=== PATIENT | female | born 1950 | race Hispanic/Latino ===

== ENCOUNTER 2020-04-17 22:05 | Inpatient (IN) | payer BC, MEDICARE ==
[~2020-04-17] VITALS: Ht 154.9 cm; Wt 61.2 kg
[2020-04-17 23:11] LABS: BASOPHILS % (AUTO) 0.5 % (0.0-5.0); EOSINOPHILS % (AUTO) 0.2 % (0.0-8.0); HEMATOCRIT 35.8 % (36-48); LYMPHOCYTES % (AUTO) 29.7 % (21.0-51.0); MEAN CORPUSCULAR HEMOGLOBIN 30.7 pg (27.0-33.0); MEAN CORPUSCULAR HGB CONC 34.4 g/dL (32.0-36.0); MEAN CORPUSCULAR VOLUME 89.3 fL (79-99); MONOCYTES % (AUTO) 10.3 % (3.0-13.0); NEUTROPHILS % (AUTO) 59.1 % (40.0-77.0); PLATELET COUNT (AUTO) 169 K/uL (130-400); RED BLOOD CELL COUNT(AUTO) 4.01 MIL/uL (4.00-5.50); WHITE BLOOD COUNT (AUTO) 4.4 K/uL (4.8-10.8)
[2020-04-17 23:26] LABS: CREATININE 0.7 mg/dL (0.5-1.5); INR 0.96 (0.85-1.15); PARTIAL THROMBOPLASTIN TIME 25.2 SEC (26.3-35.5); POTASSIUM 3.4 mmol/L (3.5-5.1); PROTHROMBIN TIME 10.4 SEC (9.6-11.6)
[2020-04-17 23:28] LABS: ALBUMIN 4.1 g/dL (3.5-5.0); BILIRUBIN,TOTAL 0.3 mg/dL (0.2-1.0); TOTAL PROTEIN, SERUM 7.8 g/dL (6.0-8.3)
[2020-04-17 23:32] LABS: B-TYPE NATRIURETIC PEPTIDE 12 pg/mL (0-100)
[2020-04-18] MEDS ORDERED: ONDANSETRON HCL 4 MG/2 ML VIAL IV PRN (00:30)
[2020-04-18] MEDS ORDERED: LIDOCAINE HCL-MPF 1% 2ML VIAL IV PRN (00:30)
[2020-04-18] MEDS ORDERED: POTASSIUM CHLORIDE 20 MEQ ERTAB PO PRN (00:30)
[2020-04-18] MEDS ORDERED: POTASSIUM CHLORIDE 20MEQ/100ML 100 ML IV PRN (00:30)
[2020-04-18] MEDS ORDERED: POTASSIUM CHLORIDE 10% ELIXIR 20 MEQ/15 ML UDCUP PO PRN (00:30)
[2020-04-18] MEDS ORDERED: ACETAMINOPHEN 325 MG TAB PO PRN ×2 (00:30)
[2020-04-18] MEDS ORDERED: HYDRALAZINE HCL 20 MG/ML VIAL IV PRN (00:30)
[2020-04-18] MEDS ORDERED: ACETAMINOPHEN 325 MG TAB ONE ×2 (04:06→12:34)
[2020-04-18 04:59] LABS: BASOPHILS % (AUTO) 0.5 % (0.0-5.0); EOSINOPHILS % (AUTO) 0.2 % (0.0-8.0); HEMATOCRIT 36.7 % (36-48); LYMPHOCYTES % (AUTO) 27.9 % (21.0-51.0); MEAN CORPUSCULAR HEMOGLOBIN 30.2 pg (27.0-33.0); MEAN CORPUSCULAR HGB CONC 33.8 g/dL (32.0-36.0); MEAN CORPUSCULAR VOLUME 89.3 fL (79-99); MONOCYTES % (AUTO) 8.8 % (3.0-13.0); NEUTROPHILS % (AUTO) 62.6 % (40.0-77.0); PLATELET COUNT (AUTO) 168 K/uL (130-400); RED BLOOD CELL COUNT(AUTO) 4.11 MIL/uL (4.00-5.50); RED CELL DISTRIBUTION WIDTH 13.1 % (11.0-15.5); WHITE BLOOD COUNT (AUTO) 4.1 K/uL (4.8-10.8)
[2020-04-18 05:02] LABS: CREATININE 0.7 mg/dL (0.5-1.5); POTASSIUM 3.8 mmol/L (3.5-5.1)
[2020-04-18 05:07] LABS: ALBUMIN 3.8 g/dL (3.5-5.0); BILIRUBIN,TOTAL 0.4 mg/dL (0.2-1.0); TOTAL PROTEIN, SERUM 7.5 g/dL (6.0-8.3)
[2020-04-18] MEDS ORDERED: GADODIAMIDE 10 MMOL/20 ML VIAL IV ONE (12:26)
--- NOTE | 2020-04-18 13:31 | NUR ---
INITIAL SW spoke with patient's spouse, Darryl Nichols. Patient lives with spouse. No home services. DME: [employer], [employer]. Patient is able to complete ADL's independently and drives. Spouse states that there are times when she needs help. PCP is Dr. Joao Guerrero. Pharmacy is [facility] located in [place] on [address]. No safety concerns voiced regarding patient going home. DCP is home. Addendum: 04/18/20 at 1335 by GOMEZ LANCE SS Amended: Links added.
[2020-04-18 16:00] VITALS: BP 138/65
[2020-04-18] MEDS ORDERED: ASPI-1197 PO (19:22)
[2020-04-18] MEDS ORDERED: RALO60TA13 PO (19:22)
[2020-04-18] MEDS ORDERED: FOLI1TAB85 PO (19:22)
[2020-04-18] MEDS ORDERED: HYDR200T4 PO (19:22)
[2020-04-18] MEDS ORDERED: CALC-1252 PO (19:22)
[2020-04-18] MEDS ORDERED: CYAN250010 PO (19:22)
[2020-04-18] MEDS ORDERED: METO25TA6 PO (19:22)
[2020-04-18] MEDS ORDERED: PRED5TAB PO (19:22)
[2020-04-18] MEDS ORDERED: ROSU5TAB12 PO (19:22)
[2020-04-18 19:45] VITALS: BP 119/63
[2020-04-18] MEDS ORDERED: ATORVASTATIN CALCIUM 10 MG TABLET PO SCH (21:00)
[2020-04-18] MEDS: METOPROLOL TARTRATE 25 MG TAB PO SCH (22:50)
--- NOTE | 2020-04-18 23:10 | NUR ---
NOTE DR. SORIANO HERE TO SEE PATIENT. SPOKE WITH HER ABOUT POSSIBLE CONSULT WITH NEUROLOGIST ON MONDAY AND ANSWERED HER QUESTIONS.
[2020-04-18 23:53] VITALS: BP 147/76
[2020-04-19 03:40] VITALS: BP 129/68
[2020-04-19 06:02] LABS: MEAN CORPUSCULAR HEMOGLOBIN 29.6 pg (27.0-33.0); MEAN CORPUSCULAR HGB CONC 33.1 g/dL (32.0-36.0); MEAN CORPUSCULAR VOLUME 89.3 fL (79-99); PLATELET COUNT (AUTO) 162 K/uL (130-400); RED BLOOD CELL COUNT(AUTO) 3.92 MIL/uL (4.00-5.50); RED CELL DISTRIBUTION WIDTH 13.4 % (11.0-15.5); WHITE BLOOD COUNT (AUTO) 2.4 K/uL (4.8-10.8)
[2020-04-19 06:28] LABS: ALBUMIN 3.3 g/dL (3.5-5.0); BILIRUBIN,TOTAL 0.4 mg/dL (0.2-1.0); CREATININE 0.6 mg/dL (0.5-1.5); POTASSIUM 3.8 mmol/L (3.5-5.1); TOTAL PROTEIN, SERUM 6.8 g/dL (6.0-8.3)
[2020-04-19 08:23] LABS: EOSINOPHILS % (MANUAL) 2 % (1-6); LYMPHOCYTES % (MANUAL) 28 % (22-44); MONOCYTES % (MANUAL) 5 % (2-9); REACTIVE LYMPHOCYTES 3 % (0-0); SEGMENTED NEUTROPHILS % 62 % (40-70)
[2020-04-19 08:24] LABS: MAN.DIFF COMMENT-IMPRESSION MANUAL DIFFERENTIAL; PLATELET MORPHOLOGY COMMENT ADEQUATE
[2020-04-19 08:43] VITALS: BP 109/63
[2020-04-19] MEDS ORDERED: RALOXIFENE HCL 60 MG TABLET PO SCH (09:00)
[2020-04-19] MEDS: [UNRECOGNIZED DRUG - OTHER] PO SCH (09:00)
[2020-04-19] MEDS: FOLIC ACID/VITAMIN B COMP W-C 1 CAP TAB PO SCH (09:11)
[2020-04-19] MEDS: ASPIRIN 81MG TAB.CHEW PO SCH (09:11)
[2020-04-19] MEDS: METOPROLOL TARTRATE 25 MG TAB PO SCH ×2 (09:11→21:31)
[2020-04-19] MEDS: PREDNISONE 5 MG TABLET PO SCH (09:12)
[2020-04-19] MEDS: CYANOCOBALAMIN (VITAMIN B-12) 1,000 MCG TABLET PO SCH (09:13)
[2020-04-19] MEDS ORDERED: HYDROXYCHLOROQUINE SULFATE 200 MG TAB ONE (09:16)
[2020-04-19] MEDS ORDERED: HYDROCORTISONE 1% 120 ML LOTION TP PRN (11:00)
[2020-04-19] MEDS: CLOPIDOGREL BISULFATE 75 MG TAB PO SCH (12:14)
[2020-04-19 12:26] VITALS: BP 130/58
[2020-04-19] MEDS ORDERED: GADODIAMIDE 10 MMOL/20 ML VIAL IV ONE (14:03)
[2020-04-19 16:54] VITALS: BP 111/56
[2020-04-19 19:00] VITALS: BP 151/65
[2020-04-19] MEDS: RALOXIFENE HCL 60 MG TABLET PO SCH (19:45)
[2020-04-19] MEDS: ATORVASTATIN CALCIUM 40 MG TABLET PO SCH (21:31)
[2020-04-20] VITALS (7 sets, daily range): BP systolic 118–138; BP diastolic 55–67
[2020-04-20 04:07] LABS: BASOPHILS % (AUTO) 0.5 % (0.0-5.0); EOSINOPHILS % (AUTO) 1.8 % (0.0-8.0); HEMATOCRIT 34.4 % (36-48); LYMPHOCYTES % (AUTO) 46.6 % (21.0-51.0); MEAN CORPUSCULAR HEMOGLOBIN 30.1 pg (27.0-33.0); MEAN CORPUSCULAR HGB CONC 33.4 g/dL (32.0-36.0); MEAN CORPUSCULAR VOLUME 90.1 fL (79-99); MONOCYTES % (AUTO) 14.5 % (3.0-13.0); NEUTROPHILS % (AUTO) 36.1 % (40.0-77.0); PLATELET COUNT (AUTO) 162 K/uL (130-400); RED BLOOD CELL COUNT(AUTO) 3.82 MIL/uL (4.00-5.50); RED CELL DISTRIBUTION WIDTH 13.2 % (11.0-15.5); WHITE BLOOD COUNT (AUTO) 2.2 K/uL (4.8-10.8)
[2020-04-20 04:33] LABS: ALBUMIN 3.3 g/dL (3.5-5.0); BILIRUBIN,TOTAL 0.3 mg/dL (0.2-1.0); CREATININE 0.7 mg/dL (0.5-1.5); POTASSIUM 3.9 mmol/L (3.5-5.1); TOTAL PROTEIN, SERUM 6.8 g/dL (6.0-8.3)
--- NOTE | 2020-04-20 08:10 | NUR ---
NOTE AAOX3. DENIES PAIN OR DISCOMFORT. NO DISTRESS OR SOB. BBS CLEAR. CAME IN WITH C/O LEFT SIDED NUMBNESS AND TINGLING. SHE HAS HAD WORKUP DONE AND SHE HAS ABNORMAL CAROTID ULTRASOUNDS, ABNORMAL MRA BRAIN BOTH SHOW CAROTID STENOSIS. STILL PENDING DR VELAZQUEZ TO COME SEE HER AND DR LACY ALSO TO ROUND.
[2020-04-20] MEDS: [UNRECOGNIZED DRUG - OTHER] PO SCH (09:00)
[2020-04-20] MEDS: METOPROLOL TARTRATE 25 MG TAB PO SCH ×2 (10:34→20:13)
[2020-04-20] MEDS: PREDNISONE 5 MG TABLET PO SCH (10:34)
[2020-04-20] MEDS: CLOPIDOGREL BISULFATE 75 MG TAB PO SCH (10:35)
[2020-04-20] MEDS: FOLIC ACID/VITAMIN B COMP W-C 1 CAP TAB PO SCH (10:35)
[2020-04-20] MEDS: HYDROXYCHLOROQUINE SULFATE 200 MG TAB PO SCH (10:35)
[2020-04-20] MEDS: ASPIRIN 81MG TAB.CHEW PO SCH (10:35)
[2020-04-20] MEDS: CYANOCOBALAMIN (VITAMIN B-12) 1,000 MCG TABLET PO SCH (10:35)
[2020-04-20] MEDS: RALOXIFENE HCL 60 MG TABLET PO SCH (10:36)
--- NOTE | 2020-04-20 13:05 | NUR ---
NOTE DR LACY, DR VELAZQUEZ AND [facility] WITH DR [facility] CARDIOLOGY CAME IN TO SEE PATIENT. REFER TO CHART FOR ORDERS.
--- NOTE | 2020-04-20 18:16 | NUR ---
NOTE STABLE, STILL REPORTS SOME TINGLING TO LEFT HAND FINGERTIPS OTHERWISE NORMAL. SHE UNDERWENT MRI CERVICAL SPINE. SHE IS GOING TO BE NPO AFTER MIDNIGHT FOR POSSIBLE PROCEDURE? NPO ORDER ORIGINATED FROM [facility].
--- NOTE | 2020-04-20 20:00 | NUR ---
ACTIVITY Pt up ad refugio,denies any weakness or numbness this time.
[2020-04-20] MEDS: ATORVASTATIN CALCIUM 40 MG TABLET PO SCH (20:13)
[2020-04-21] VITALS (12 sets, daily range): BP systolic 96–149; BP diastolic 40–75
--- NOTE | 2020-04-21 01:21 | NUR ---
NPO Pt kept npo after midnight for possible procedure in am.
[2020-04-21] MEDS: ASPIRIN 81MG TAB.CHEW PO SCH (08:29)
[2020-04-21] MEDS: RALOXIFENE HCL 60 MG TABLET PO SCH (08:29)
[2020-04-21] MEDS: [UNRECOGNIZED DRUG - OTHER] PO SCH (08:29)
[2020-04-21] MEDS: PREDNISONE 5 MG TABLET PO SCH (08:29)
[2020-04-21] MEDS: METOPROLOL TARTRATE 25 MG TAB PO SCH ×2 (08:30→21:47)
[2020-04-21] MEDS: FOLIC ACID/VITAMIN B COMP W-C 1 CAP TAB PO SCH (08:30)
[2020-04-21] MEDS: CYANOCOBALAMIN (VITAMIN B-12) 1,000 MCG TABLET PO SCH (08:30)
[2020-04-21] MEDS ORDERED: IODIXANOL 320 MG/ML 100 ML VIAL ONE ×2 (12:23→13:41)
[2020-04-21] MEDS ORDERED: HEPARIN SODIUM 1000UNIT/ML 10ML VIAL ONE (12:23)
[2020-04-21] MEDS ORDERED: SODIUM BICARB 50MEQ 50ML VIAL ONE (12:23)
[2020-04-21] MEDS ORDERED: LIDOCAINE HCL 2% 20ML ONE (12:24)
[2020-04-21] MEDS ORDERED: NITROGLYCERIN 2 MG/VIAL VIAL IV ONE (13:06)
[2020-04-21] MEDS ORDERED: MEPERIDINE-PF 25 MG/ML SYG ONE (13:10)
[2020-04-21] MEDS ORDERED: MIDAZOLAM HCL 1 MG/ML 2ML VIAL ONE (13:11)
[2020-04-21] MEDS ORDERED: LABETALOL HCL 5 MG/ML 20ML VIAL IV ONE (13:14)
[2020-04-21] MEDS ORDERED: SODIUM CHLORIDE 0.9% 1000ML 1,000 ML IV SCH (14:00)
--- NOTE | 2020-04-21 18:59 | NUR ---
S/P LHC RECEIVED PT LHC AND CAROTID ANGIOGRAM. IT WAS REPORTED THAT PT TOLERATED PROCEDURE WELL, SHEATH WAS REMOVED AND PRESSURE DRESSING APPLIED ONCE ON UNIT FLOOR TO RIGHT GROIN. NO SIGNS OF BLEEDING OR HEMATOMA. PT ALERT AND ORIENTED. PT ID TO LIE FLAT AND FLUIDS ARE TO REMAIN FLOWING AT 150CC/HR FOR 6 HOURS-2039. TOLERATED 505 OF DINNER AND MEDICATED WITH TYLENOL X1. DR ECHAVARRIA CONSULTED WITH PT FOR PAIN MANAGEMENT- WILL SEE AN OUTPT.
[2020-04-21] MEDS: ATORVASTATIN CALCIUM 40 MG TABLET PO SCH (21:47)
[2020-04-22 04:00] VITALS: BP 137/60
[2020-04-22 08:00] VITALS: BP 138/67
[2020-04-22] MEDS: [UNRECOGNIZED DRUG - OTHER] PO SCH (09:00)
[2020-04-22] MEDS: LIDOCAINE 5% TOPICAL PATCH TP SCH (09:29)
[2020-04-22] MEDS: FOLIC ACID/VITAMIN B COMP W-C 1 CAP TAB PO SCH (09:30)
[2020-04-22] MEDS: HYDROXYCHLOROQUINE SULFATE 200 MG TAB PO SCH (09:30)
[2020-04-22] MEDS: METOPROLOL TARTRATE 25 MG TAB PO SCH ×2 (09:30→20:42)
[2020-04-22] MEDS: CYANOCOBALAMIN (VITAMIN B-12) 1,000 MCG TABLET PO SCH (09:30)
[2020-04-22] MEDS: RALOXIFENE HCL 60 MG TABLET PO SCH (09:30)
[2020-04-22] MEDS: CLOPIDOGREL BISULFATE 75 MG TAB PO SCH (09:30)
[2020-04-22] MEDS: PREDNISONE 5 MG TABLET PO SCH (09:30)
[2020-04-22] MEDS: ASPIRIN 81MG TAB.CHEW PO SCH (09:31)
[2020-04-22 11:42] VITALS: BP 126/67
[2020-04-22 16:00] VITALS: BP 127/69
[2020-04-22] MEDS ORDERED: CLOP75TA14 PO (17:46)
[2020-04-22] MEDS ORDERED: ATOR40TA69 PO (17:46)
[2020-04-22 20:00] VITALS: BP 116/65
[2020-04-22] MEDS: ATORVASTATIN CALCIUM 40 MG TABLET PO SCH (20:42)
[2020-04-23 00:08] VITALS: BP 122/59
[2020-04-23 05:20] VITALS: BP 125/56
[2020-04-23 08:00] VITALS: BP 118/72
[2020-04-23] MEDS: RALOXIFENE HCL 60 MG TABLET PO SCH (08:43)
[2020-04-23] MEDS: PREDNISONE 5 MG TABLET PO SCH (08:43)
[2020-04-23] MEDS: METOPROLOL TARTRATE 25 MG TAB PO SCH (08:44)
[2020-04-23] MEDS: CYANOCOBALAMIN (VITAMIN B-12) 1,000 MCG TABLET PO SCH (08:44)
[2020-04-23] MEDS: LIDOCAINE 5% TOPICAL PATCH TP SCH (08:45)
[2020-04-23] MEDS: FOLIC ACID/VITAMIN B COMP W-C 1 CAP TAB PO SCH (08:45)
[2020-04-23] MEDS: ASPIRIN 81MG TAB.CHEW PO SCH (08:45)
[2020-04-23] MEDS: CLOPIDOGREL BISULFATE 75 MG TAB PO SCH (08:45)
[2020-04-23] MEDS: [UNRECOGNIZED DRUG - OTHER] PO SCH (08:46)
--- NOTE | 2020-04-23 09:11 | NUR ---
d/c instructions given to patient, i have also given her a cd of procedures done while in hospital and copies of heart cath reports that dr deleon requested we give to her; i have gone over with patient activity level, f/u appointments, diet, change in medications and side effects and risks associated with her new medications; pt stated understanding of all instructions; iv access removed and pt's is already here to pick her up; we will assist her to get dressed and take her downstairs in wheelchair.
== END 2020-04-23 09:36 | disposition home or self-care (01) | DRG 552 ==
LOC: EDH 22:05 → EDHIP 04-18 00:18 → OBSVTOIN 04-18 00:18 → 3BH 04-18 14:59
PROVIDERS: ADMIT Internal Medicine; ATTEND Internal Medicine
PROC: B41B1ZZ Fluoroscopy of Other Intra-Abdominal Arteries using Low Osmolar Contrast (ICD-10-PCS; principal; 2020-04-21)
PROC: B2111ZZ Fluoroscopy of Multiple Coronary Arteries using Low Osmolar Contrast (ICD-10-PCS; 2020-04-21)
PROC: B3151ZZ Fluoroscopy of Bilateral Common Carotid Arteries using Low Osmolar Contrast (ICD-10-PCS; 2020-04-21)
PROC: 4A023N7 Measurement of Cardiac Sampling and Pressure, Left Heart, Percutaneous Approach (ICD-10-PCS; 2020-04-21)
DX: M50.10 Cervical disc disorder with radiculopathy, unspecified cervical region (principal); I65.23 Occlusion and stenosis of bilateral carotid arteries; M48.02 Spinal stenosis, cervical region; M32.9 Systemic lupus erythematosus, unspecified; M19.90 Unspecified osteoarthritis, unspecified site; I10 Essential (primary) hypertension; E78.5 Hyperlipidemia, unspecified; G56.03 Carpal tunnel syndrome, bilateral upper limbs; I25.119 Atherosclerotic heart disease of native coronary artery with unspecified angina pectoris; I72.8 Aneurysm of other specified arteries; M25.78 Osteophyte, vertebrae; Z96.643 Presence of artificial hip joint, bilateral; Z96.652 Presence of left artificial knee joint; M75.02 Adhesive capsulitis of left shoulder; W19.XXXA Unspecified fall, initial encounter; Y93.89 Activity, other specified; Y92.89 Other specified places as the place of occurrence of the external cause; Y99.8 Other external cause status; Z79.02 Long term (current) use of antithrombotics/antiplatelets; Z79.52 Long term (current) use of systemic steroids; Z79.82 Long term (current) use of aspirin; Z79.899 Other long term (current) drug therapy; Z83.3 Family history of diabetes mellitus; Z82.41 Family history of sudden cardiac death; Z82.49 Family history of ischemic heart disease and other diseases of the circulatory system
CPT/HCPCS: 36223; 36245; 36415; 70450; 70549; 70553; 71045; 72141; 75726; 80053; 80061; 82550; 82948; 83605; 83690; 83880; 84443; 84484; 85025; 85027; 85610; 85730; 93005; 93306; 93356; 93454; 93880; 99156; 99157; A9579; C1894; G0378; J1644; J2175; J2250; J3490; J7030; J7512; Q9967

== ENCOUNTER → 2020-06-11 | Outpatient (CLI) | payer BC, MEDICARE ==
[~2020-06-11] MED LIST: ASPI-1197 PO; ATOR40TA69 PO; CALC-1252 PO; CLOP75TA14 PO; CYAN250010 PO; FOLI1TAB85 PO; HYDR200T4 PO; IOHEXOL 350 MG/ML 100ML INFUS..BTL IV ONE; METO25TA6 PO; PRED5TAB PO; RALO60TA13 PO
== END | disposition home or self-care (01) ==
LOC: RAH 07:37
PROVIDERS: ATTEND Internal Medicine Cardiovascular Disease
DX: K42.9 Umbilical hernia without obstruction or gangrene (principal); I70.0 Atherosclerosis of aorta; E11.9 Type 2 diabetes mellitus without complications; I10 Essential (primary) hypertension; D64.9 Anemia, unspecified; R18.8 Other ascites
CPT/HCPCS: 74175; Q9967

== ENCOUNTER → 2021-07-08 | Outpatient (CLI) | payer BC, MEDICARE ==
[~2021-07-08] MED LIST changes: -IOHEXOL 350 MG/ML 100ML INFUS..BTL IV ONE
[2021-07-08 15:08] LABS: BASOPHILS % (AUTO) 0.6 % (0.0-5.0); HEMATOCRIT 35.3 % (36-48); LYMPHOCYTES % (AUTO) 18.5 % (21.0-51.0); MEAN CORPUSCULAR HEMOGLOBIN 30.3 pg (27.0-33.0); MEAN CORPUSCULAR HGB CONC 32.3 g/dL (32.0-36.0); MEAN CORPUSCULAR VOLUME 93.9 fL (79-99); MONOCYTES % (AUTO) 9.2 % (3.0-13.0); NEUTROPHILS % (AUTO) 71.4 % (40.0-77.0); PLATELET COUNT (AUTO) 168 K/uL (130-400); RED BLOOD CELL COUNT(AUTO) 3.76 MIL/uL (4.00-5.50); RED CELL DISTRIBUTION WIDTH 13.9 % (11.0-15.5); WHITE BLOOD COUNT (AUTO) 3.3 K/uL (4.8-10.8)
[2021-07-08 15:27] LABS: CREATININE 1.1 mg/dL (0.5-1.5); POTASSIUM 4.3 mmol/L (3.5-5.1)
== END | disposition home or self-care (01) ==
LOC: LAB 14:45
PROVIDERS: ATTEND Urology
DX: R31.29 Other microscopic hematuria (principal)
CPT/HCPCS: 36415; 80048; 85025

== ENCOUNTER → 2021-07-12 | Outpatient (CLI) | payer BC, MEDICARE ==
[~2021-07-12] MED LIST changes: +IOHEXOL-350 75 ML VIAL IV ONE
== END | disposition home or self-care (01) ==
LOC: RAH 10:32
PROVIDERS: ATTEND Urology
DX: R31.29 Other microscopic hematuria (principal); M47.815 Spondylosis without myelopathy or radiculopathy, thoracolumbar region; I77.89 Other specified disorders of arteries and arterioles; K57.90 Diverticulosis of intestine, part unspecified, without perforation or abscess without bleeding
CPT/HCPCS: 74178; Q9967

== ENCOUNTER → 2023-04-27 | Outpatient (CLI) | payer MEDICARE ==
[~2023-04-27] MED LIST changes: +CLOP-31 PO; -CLOP75TA14 PO; -HYDR200T4 PO; +HYDR200T75 PO; +IOHEXOL 350 MG/ML 100ML INFUS..BTL IV ONE; -IOHEXOL-350 75 ML VIAL IV ONE
== END | disposition home or self-care (01) ==
LOC: RAH 08:20
PROVIDERS: ATTEND Internal Medicine Cardiovascular Disease
DX: D18.03 Hemangioma of intra-abdominal structures (principal); I35.0 Nonrheumatic aortic (valve) stenosis; I10 Essential (primary) hypertension; I70.0 Atherosclerosis of aorta; I72.8 Aneurysm of other specified arteries
CPT/HCPCS: 74175; Q9967

== ENCOUNTER → 2024-05-09 | Outpatient (CLI) | payer MEDICARE ==
[~2024-05-09] MED LIST changes: +metoPROLOL tartRATE 1 MG/ML 5ML VIAL IV ONE
== END | disposition home or self-care (01) ==
LOC: RAH 12:36
PROVIDERS: ATTEND Internal Medicine Cardiovascular Disease
DX: I25.119 Atherosclerotic heart disease of native coronary artery with unspecified angina pectoris (principal); I10 Essential (primary) hypertension; R06.00 Dyspnea, unspecified
CPT/HCPCS: 75574; J3490; Q9967

== ENCOUNTER → 2024-06-06 | Outpatient (CLI) | payer MEDICARE ==
[~2024-06-06] VITALS: Ht 152.4 cm; Wt 54.4 kg
[~2024-06-06] MED LIST changes: +ASPI-1146 PO; +ATOR40TA71 PO; +CLON0.1T PO; +CYAN-35 PO; +FOLI0.8T22 PO; -IOHEXOL 350 MG/ML 100ML INFUS..BTL IV ONE; +LINA145C PO; +METO-391 PO; +PANT20TA18 PO; +TAMS-1 PO; +VITA1CAP85 PO; +[UNRECOGNIZED DRUG - OTHER] PO; -metoPROLOL tartRATE 1 MG/ML 5ML VIAL IV ONE
[2024-06-06 10:53] LABS: BASOPHILS # (AUTO) 0.01 K/uL (0.00-0.20); BASOPHILS % (AUTO) 0.2 % (0.0-5.0); EOSINOPHILS # (AUTO) 0.01 K/uL (0.00-0.70); EOSINOPHILS % (AUTO) 0.2 % (0.0-8.0); HEMATOCRIT 31.8 % (36-48); IMMATURE GRANULOCYTE ABSOLUTE 0.02 K/uL (0-1); LYMPHOCYTES # (AUTO) 0.4 K/uL (1.0-4.8); MEAN CORPUSCULAR HGB CONC 31.8 g/dL (32.0-36.0); MEAN CORPUSCULAR VOLUME 91.4 fL (79-99); MONOCYTES # (AUTO) 0.3 K/uL (0.1-1.0); MONOCYTES % (AUTO) 6.1 % (3.0-13.0); NEUTROPHILS # (AUTO) 4.5 K/uL (1.8-7.7); NEUTROPHILS % (AUTO) 85.1 % (40.0-77.0); PLATELET COUNT (AUTO) 197 K/uL (130-400); RED BLOOD CELL COUNT(AUTO) 3.48 MIL/uL (4.00-5.50); RED CELL DISTRIBUTION WIDTH 15.2 % (11.0-15.5); WHITE BLOOD COUNT (AUTO) 5.3 K/uL (4.8-10.8)
[2024-06-06 10:54] VITALS: BP 162/90; PULSE 51; RESP 18; TEMP 97.2
[2024-06-06 10:59] LABS: ADD UA MICROSCOPIC YES; APPEARANCE,URINE CLOUDY (CLEAR); BILIRUBIN,URINE NEGATIVE (NEGATIVE); COLOR,URINE YELLOW (YELLOW); GLUCOSE, URINE (UA) NEGATIVE (NEGATIVE); KETONES,URINE NEGATIVE (NEGATIVE); LEUKOCYTE ESTERASE ,URINE 500 Leu/uL (NEGATIVE); NITRATE,URINE NEGATIVE (NEGATIVE); OCCULT BLOOD,URINE SMALL (NEGATIVE); PH,URINE 5.5 (5.0-8.0); PROTEIN,URINE 70 mg/dL (NEGATIVE); UROBILINOGEN,URINE 0.2 mg/dL (0.2-1.0)
[2024-06-06 11:05] LABS: CREATININE 0.8 mg/dL (0.5-1.0); POTASSIUM 3.5 mmol/L (3.5-5.1)
--- NOTE | 2024-06-06 11:08 | EKG ---
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
[2024-06-06 11:29] LABS: B-TYPE NATRIURETIC PEPTIDE 126 pg/mL (0-100)
[2024-06-06 11:46] LABS: INR 1.03 (0.85-1.15); PROTHROMBIN TIME 11.1 SEC (9.6-11.6)
[2024-06-06 11:48] LABS: PARTIAL THROMBOPLASTIN TIME 25.4 SEC (26.3-35.5)
[2024-06-06 11:49] LABS: BACTERIA,URINE FEW /HPF (None Seen); MUCUS,URINE RARE LPF (None Seen); SQUAMOUS EPITHELIAL CELL,UR MOD /HPF (0-2); TRANSITIONAL EPI CELLS,URINE MOD /HPF (None Seen); WBC,URINE TNTC /HPF (0-1)
--- NOTE | 2024-06-06 12:16 | HMCIMG ---
CHEST 1VW REASON: PRE OP COMPARISON: 04/17/2020 FINDINGS: Single view of the chest was obtained. Lungs are clear. Heart size is normal. There is no pulmonary vascular congestion. Mediastinum and bony thorax appear unremarkable. IMPRESSION: 1. Normal single view chest x-ray.
== END | disposition home or self-care (01) ==
LOC: DAH 10:00 → EDSTATUS 10:00
PROVIDERS: ATTEND Internal Medicine Cardiovascular Disease
DX: Z01.812 Encounter for preprocedural laboratory examination (principal); Z01.818 Encounter for other preprocedural examination; I25.10 Atherosclerotic heart disease of native coronary artery without angina pectoris; I45.10 Unspecified right bundle-branch block; Z79.01 Long term (current) use of anticoagulants; Z53.8 Procedure and treatment not carried out for other reasons
CPT/HCPCS: 36415; 71045; 80048; 81001; 83880; 85025; 85610; 85730; 87086; 87186; 93005

== ENCOUNTER 2024-07-08 08:00 | Day surgery (SDC) | payer MEDICARE ==
--- NOTE | 2024-07-03 08:42 | EKG ---
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
[2024-07-03 08:50] VITALS: BP 167/78; PULSE 75; RESP 18; TEMP 97.4
[2024-07-03 08:59] LABS: BASOPHILS # (AUTO) 0.01 K/uL (0.00-0.20); BASOPHILS % (AUTO) 0.2 % (0.0-5.0); EOSINOPHILS # (AUTO) 0.04 K/uL (0.00-0.70); HEMATOCRIT 30.9 % (36-48); IMMATURE GRANULOCYTE ABSOLUTE 0.01 K/uL (0-1); LYMPHOCYTES # (AUTO) 0.5 K/uL (1.0-4.8); LYMPHOCYTES % (AUTO) 12.1 % (21.0-51.0); MEAN CORPUSCULAR HEMOGLOBIN 29.2 pg (27.0-33.0); MEAN CORPUSCULAR HGB CONC 32.4 g/dL (32.0-36.0); MEAN CORPUSCULAR VOLUME 90.4 fL (79-99); MONOCYTES # (AUTO) 0.4 K/uL (0.1-1.0); MONOCYTES % (AUTO) 8.7 % (3.0-13.0); NEUTROPHILS # (AUTO) 3.2 K/uL (1.8-7.7); NEUTROPHILS % (AUTO) 77.8 % (40.0-77.0); PLATELET COUNT (AUTO) 190 K/uL (130-400); RED BLOOD CELL COUNT(AUTO) 3.42 MIL/uL (4.00-5.50); RED CELL DISTRIBUTION WIDTH 15.4 % (11.0-15.5); WHITE BLOOD COUNT (AUTO) 4.1 K/uL (4.8-10.8)
[2024-07-03 09:05] LABS: CREATININE 0.7 mg/dL (0.5-1.0); POTASSIUM 3.8 mmol/L (3.5-5.1)
[2024-07-03 09:09] LABS: INR 1.03 (0.85-1.15); PROTHROMBIN TIME 11.1 SEC (9.6-11.6)
[2024-07-03 09:10] LABS: APPEARANCE,URINE CLOUDY (CLEAR); BILIRUBIN,URINE NEGATIVE (NEGATIVE); COLOR,URINE YELLOW (YELLOW); GLUCOSE, URINE (UA) NEGATIVE (NEGATIVE); KETONES,URINE NEGATIVE (NEGATIVE); LEUKOCYTE ESTERASE ,URINE 500 Leu/uL (NEGATIVE); NITRATE,URINE NEGATIVE (NEGATIVE); OCCULT BLOOD,URINE SMALL (NEGATIVE); PROTEIN,URINE 20 mg/dL (NEGATIVE); UROBILINOGEN,URINE 0.2 mg/dL (0.2-1.0)
[2024-07-03 09:10] LABS: PARTIAL THROMBOPLASTIN TIME 25.6 SEC (26.3-35.5)
[2024-07-03 09:24] LABS: B-TYPE NATRIURETIC PEPTIDE 137 pg/mL (0-100)
[2024-07-03 09:26] LABS: ADD UA MICROSCOPIC YES
[2024-07-03 10:26] LABS: BACTERIA,URINE Few /HPF (None Seen)
--- NOTE | 2024-07-03 12:33 | HMCIMG ---
CHEST 1VW REASON: PREOP COMPARISON: 06/06/2024 FINDINGS: Single view of the chest was obtained. Lungs are clear. Heart size is normal. There is no pulmonary vascular congestion. Mediastinum and bony thorax appear unremarkable. IMPRESSION: 1. Normal single view chest x-ray.
--- NOTE | 2024-07-03 13:00 | NUR ---
AKIL VEGA NP MADE AWARE OF UA RESULTS (500 LEUKOCYTES), PT NOT HAVING ANY SYMPTOMS. STATES OK TO PROCEED
[~2024-07-08] VITALS: Ht 154.9 cm; Wt 55.0 kg
[2024-07-08] VITALS (13 sets, daily range): BP systolic 113–183; BP diastolic 45–79; PULSE 60–86; RESP 16–18; TEMP 97.3–98.2
[~2024-07-08 08:00] MED LIST changes: -ASPI-1197 PO; -ATOR40TA69 PO; +CHOL100046 PO; -CLON0.1T PO; -CYAN250010 PO; -FOLI0.8T22 PO; -LINA145C PO; -METO25TA6 PO; -PANT20TA18 PO; +TYLENOL ARTHRITIS PO; -[UNRECOGNIZED DRUG - OTHER] PO
[2024-07-08] MEDS ORDERED: 0.9%NACL 1000ML 1,000 ML IV SCH ×2 (09:30→15:30)
[2024-07-08] MEDS ORDERED: SODIUM BICARB 50MEQ 50ML VIAL 50 ML ONE (14:47)
[2024-07-08] MEDS ORDERED: LIDOCAINE HCL 400MG/20ML VIAL ONE (14:47)
[2024-07-08] MEDS ORDERED: MIDAZOLAM HCL 1 MG/ML 2ML VIAL ONE ×2 (14:48→15:00)
[2024-07-08] MEDS ORDERED: IOHEXOL 350 MG/ML 100ML INFUS..BTL IV ONE (14:48)
[2024-07-08] MEDS ORDERED: MEPERIDINE-PF 25 MG/ML SYG ONE ×2 (14:48→15:00)
[2024-07-08] MEDS ORDERED: HEParin 10,000 UNIT/10ML (1,000 UNIT/ML) VIAL ONE (14:48)
[2024-07-08] MEDS ORDERED: NITROGLYCERIN 50MG VIAL ONE (14:49)
[2024-07-08] MEDS ORDERED: HEParin-NS 1,000 UNIT/500 ML 1,000 ML IV ONE (14:49)
--- NOTE | 2024-07-08 15:36 | PR ---
PROCEDURES: * Left heart catheterization. * Selective diagnostic right and left coronary arteriogram. * Conscious sedation. INDICATIONS: * Known history of coronary artery disease. * Abnormal coronary CT angiogram. * Elevated coronary calcium score. COMPLICATIONS: None. TOTAL CONTRAST: 40 mL. DESCRIPTION OF PROCEDURE: The patient was taken to the cardiac laborer carpentry dock after appropriate operative consents were signed. She was prepped and draped in the usual fashion. After conscious sedation was administered, the right common femoral artery region was infiltrated with 2% Xylocaine without epinephrine. A 6-Slovenian sheath was advanced in retrograde fashion by the modified Seldinger technique. A FR4 6-Slovenian catheter was then advanced under fluoroscopic guidance over an indwelling J wire. The catheter was then positioned in the left ventricular cavity. Left ventricular end-diastolic pressure measurement was obtained. Ventriculography was deferred. The patient had preserved LV systolic function by noninvasive studies. Pullback across the aortic valve revealed minimal gradient of less than 10 mmHg. The catheter was then engaged in the ostium of the right coronary artery. This was imaged in multiplane. This was a moderately sized vessel that gave rise to PDA and PLVB. There was a proximal lesion and the RCA had approximately 40%. The catheter was withdrawn and FL4 6-Slovenian catheter was advanced, selectively engaged in the ostium of the left main. The left main was short and mildly calcified, but free of significant stenotic lesions. It bifurcated into LAD, and circumflex. Circumflex artery was a large vessel, gave rise to a small OM1 and a large branching OM2. There is no significant stenotic lesions in the circumflex coronary artery. The LAD was a smaller vessel that gave rise to several diagonals and septal perforators. The proximal segment of the LAD had a calcified 50% stenotic lesions. The mid segment also had a 50% stenotic lesion just distal to the first diagonal and a tandem 30% lesion in the mid LAD. At this point, the catheter was withdrawn. The procedure was completed, Mynx was utilized with good hemostasis. The patient tolerated the procedure well and left the cardiac laborer carpentry dock in stable condition. FINAL IMPRESSION: * Coronary artery disease with 40-50% stenotic lesions. * Minimal aortic stenosis. * Preserved left ventricular systolic function by noninvasive studies. PLAN: Continue conservative medical management. TID: [id number] RECEIPT: [id number]
== END 2024-07-08 20:00 | disposition home or self-care (01) ==
LOC: DAH 08:00
PROVIDERS: ATTEND Internal Medicine Cardiovascular Disease
DX: R93.1 Abnormal findings on diagnostic imaging of heart and coronary circulation (principal); I25.10 Atherosclerotic heart disease of native coronary artery without angina pectoris; I25.84 Coronary atherosclerosis due to calcified coronary lesion; M06.9 Rheumatoid arthritis, unspecified; M32.9 Systemic lupus erythematosus, unspecified; I10 Essential (primary) hypertension; I45.10 Unspecified right bundle-branch block; I35.0 Nonrheumatic aortic (valve) stenosis; Z95.5 Presence of coronary angioplasty implant and graft; Z79.82 Long term (current) use of aspirin; Z79.899 Other long term (current) drug therapy
CPT/HCPCS: 80048; 83880; 85025; 85610; 85730; 87086; 81001; 36415; 71045; 93005; 93458; C1894; C1760; Q9965; J3490 ×3; J1644 ×2; J2250 ×2; J2175 ×2; Q9967; A4215; A4222; A4221; A4663; A4216; A4606; A4223 ×2; 99156; 99157